=== PATIENT | male | born 1990 | race Caucasian/White ===

== ENCOUNTER 2016-06-05 16:07 | Emergency (ER) | payer SELFPAY ==
[~2016-06-05] VITALS: Ht 182.9 cm; Wt 88.6 kg
[~2016-06-05 16:07] MED LIST: CLOMIPHENE CITR50 MG PO; DAILY VITAMIN1 EAC4 PO; PEPCID20 MG PO; ZOFRAN4 MG PO
[2016-06-05] MEDS ORDERED: AUGMENTIN875 MG PO (18:01)
[2016-06-05 18:24] VITALS: BP 129/70
== END 2016-06-05 18:24 | disposition home or self-care (01) ==
LOC: EME 16:07
DX: S61.451A Open bite of right hand, initial encounter (principal); W54.0XXA Bitten by dog, initial encounter; Y92.007 Garden or yard of unspecified non-institutional (private) residence as the place of occurrence of the external cause; Z23 Encounter for immunization
CPT/HCPCS: 99281; 99284